=== PATIENT | male | born 1965 | race Caucasian/White ===

== ENCOUNTER 2021-07-11 22:32 | Emergency (ER) | payer MEDICAID ==
[~2021-07-11] VITALS: Ht 165.1 cm; Wt 64.0 kg
[2021-07-11] MEDS ORDERED: BACITRACIN ZINC OINT UDPKT TOP ONE (23:00)
[2021-07-11] MEDS ORDERED: LIDOCAINE HCL/PF 1% 10 MG/ML 5ML VIAL INFIL ONE (23:00)
[2021-07-11] MEDS ORDERED: LIDOCAINE HCL 1% 20ML VIAL (Pyxis) INJ INFIL NR (23:15)
[2021-07-12 11:07] VITALS: BP 125/69
== END 2021-07-12 11:29 ==
LOC: ER 22:32
DX: S01.112A Laceration without foreign body of left eyelid and periocular area, initial encounter (principal); E78.00 Pure hypercholesterolemia, unspecified; I10 Essential (primary) hypertension; R51.9 Headache, unspecified; Z86.73 Personal history of transient ischemic attack (TIA), and cerebral infarction without residual deficits; W18.30XA Fall on same level, unspecified, initial encounter; Y93.89 Activity, other specified; Y92.89 Other specified places as the place of occurrence of the external cause; Y99.8 Other external cause status
CPT/HCPCS: 12011; 70450; 93005; 99284; J3490; Z7610

== ENCOUNTER 2021-08-10 00:25 | Emergency (ER) | payer MEDICAID ==
[~2021-08-10] VITALS: Ht 170.2 cm; Wt 59.0 kg
[2021-08-10] MEDS ORDERED: SODIUM CHLORIDE 0.9% 1,000 ML IV ONE (01:15)
[2021-08-10 01:32] LABS: BASOPHILS % 0.6 % (0.0-2.0); EOSINOPHILS % 0.6 % (0.0-5.0); HEMATOCRIT. 36.4 % (42.0-52.0); HEMOGLOBIN. 12.4 g/dL (14.0-18.0); LYMPHOCYTES % 18.6 % (20.0-50.0); MEAN CORPUSCULAR HEMOGLOBIN 28.9 pg (28.0-32.0); MEAN CORPUSCULAR VOLUME 84.6 fL (80.0-94.0); MEAN PLATELET VOLUME 7.7 fl (7.4-10.4); MONOCYTES % 5.8 % (2.0-8.0); NEUTROPHILS % 74.4 % (40.0-76.0); PLATELET 279 x1000/uL (130-400); RED CELL DISTRIBUTION WIDTH 13.5 % (11.6-14.6)
[2021-08-10 01:35] LABS: CHLORIDE 106 mEq/L (98-107)
[2021-08-10 13:38] VITALS: BP 132/71
== END 2021-08-10 14:32 ==
LOC: ER 00:25 → CANBEDREQ 23:55
DX: S02.2XXB Fracture of nasal bones, initial encounter for open fracture (principal); Y93.9 Activity, unspecified; W19.XXXA Unspecified fall, initial encounter; Y92.129 Unspecified place in nursing home as the place of occurrence of the external cause; I69.320 Aphasia following cerebral infarction; I69.354 Hemiplegia and hemiparesis following cerebral infarction affecting left non-dominant side; Z68.20 Body mass index [BMI] 20.0-20.9, adult; R62.7 Adult failure to thrive; I10 Essential (primary) hypertension; E78.00 Pure hypercholesterolemia, unspecified
CPT/HCPCS: 36415; 70450; 70486; 71045; 80053; 84484; 85025; 93005; 96360; 99285; J7030